=== PATIENT | female | born 1960 | race Caucasian/White ===

== ENCOUNTER → 2021-03-14 02:43 | Outpatient (CLI) | payer BC, SELFPAY ==
[2021-03-14 18:16] LABS: SARS-CoV-2 RNA PCR Negative
== END ==
PROVIDERS: PCP Family Medicine; Visit Provider Internal Medicine Gastroenterology
DX: Z01.812 Encounter for preprocedural laboratory examination (principal); Z20.822 Contact with and (suspected) exposure to COVID-19
CPT/HCPCS: C9803; U0003; U0005

== ENCOUNTER 2021-03-17 00:53 | Day surgery (SDC) | payer BC, SELFPAY ==
[2021-03-04 15:03] VITALS: BMI 40.3
[2021-03-17 08:10] VITALS: BP 151/103; PULSE 87; RESP 24; TEMP 36.6; O2SAT 96; BMI 40.5
[2021-03-17] MEDS: LACTATED RINGERS 1,000 ML 150 ML IV CONT (08:26)
--- NOTE | 2021-03-17 08:26 | PM.HPGS ---
History of Present Illness History of Present Illness Consent: Risks, benefits, and alternatives have been discussed and questions answered. Patient agrees to proceed with procedure. Chief complaint: hx of colon polyps Narrative: Arleth Nj is a 61 year old female here for colon cancer screening. She had a polyp removed several years ago Review of Systems Review of Systems: All systems reviewed & are unremarkable except as noted in HPI and below PMFSH Past Medical History Medical History BMI 31.0-31.9,adult Family History Family History Father Heart disease Hypertension Kidney disease Mother Multiple myeloma Sibling Heart disease Other Family history of cardiovascular disease Family history of kidney disease Family history of malignant neoplasm Social History Social History Smoking status: Never smoker Second hand tobacco smoke exposure: No Alcohol intake: current Alcohol use details: rarely Substance use: never Substance use type: does not use Living arrangements: with family Sexual Orientation (if Verbalized by the Patient): Lesbian, Smith, or Homosexual Spiritual care concerns: No Meds Home Medications and Allergies Home Medications Medication Instructions Recorded Confirmed Type hydroxychloroquine 200 mg tablet 200 mg PO BID 03/22/20 03/17/21 History meloxicam submicronized 10 mg 10 mg PO DAILY 03/22/20 03/17/21 History capsule adalimumab 40 mg/0.8 mL 40 mg SUBCUT ONCE 09/27/20 03/17/21 History subcutaneous pen kit triamcinolone acetonide 0.5 % 1 applic TOPICAL BID #30 g 09/27/20 03/17/21 Rx topical cream Allergies Allergy/AdvReac Type Severity Reaction Status Date / Time No Known Allergies Allergy Verified 03/17/21 08:01 Vital Signs Vital Signs - 24 hr 03/17/21 08:10 Temperature 36.6 C Pulse Rate 87 Respiratory Rate 24 H Blood Pressure 151/103 H Pulse Oximetry 96 Exam Const: General: alert Orientation/consciousness: patient oriented x3 Resp: Auscultation: clear to auscultation bilaterally Cardio: Rhythm: regular rhythm GI: GI Palp: Yes Soft to palpation and No Tenderness to palpation present (GI) Neuro: General: patient oriented x3 Assessment and Plan Assessment and plan (1) Colon cancer screening: Code(s): Z12.11 - Encounter for screening for malignant neoplasm of colon Status: Acute Assessment and Plan: Colonoscopy with possible biopsy or polypectomy or cautery or injection of substances.
--- NOTE | 2021-03-17 08:50 | WPDANESEPPF ---
Anes - Initial Pre Proc Eval Procedure: Operation Date: 03/17/21 09:00 Proposed Procedures p Screening Colonoscopy - Lauro Alcazar MD Date/Time: 03/17/21 08:50 Surgeon: Lauro Alcazar MD Pre Op Diagnosis: hx of colon polyps Patient Data Age: 61 Gender: F Height: 1.57 m Weight: 100.5 kg Last Vital Signs Temp 36.6 C 03/17/21 08:10 Pulse 87 03/17/21 08:10 Resp 24 H 03/17/21 08:10 BP 151/103 H 03/17/21 08:10 Pulse Ox 96 03/17/21 08:10 Allergies Allergy/AdvReac Type Severity Reaction Status Date / Time No Known Allergies Allergy Verified 03/17/21 08:01 Home Medications Medication Instructions Recorded Confirmed Type hydroxychloroquine 200 mg tablet 200 mg PO BID 03/22/20 03/17/21 History meloxicam submicronized 10 mg 10 mg PO DAILY 03/22/20 03/17/21 History capsule adalimumab 40 mg/0.8 mL 40 mg SUBCUT ONCE 09/27/20 03/17/21 History subcutaneous pen kit triamcinolone acetonide 0.5 % 1 applic TOPICAL BID #30 g 09/27/20 03/17/21 Rx topical cream Patient hx anesthesia problems: none Family hx anesthesia problems: none PMFSH Past Medical History Medical History BMI 31.0-31.9,adult Family History Family History Father Heart disease Hypertension Kidney disease Mother Multiple myeloma Sibling Heart disease Other Family history of cardiovascular disease Family history of kidney disease Family history of malignant neoplasm Social History Social History Smoking status: Never smoker Second hand tobacco smoke exposure: No Alcohol intake: current Alcohol use details: rarely Substance use: never Substance use type: does not use Living arrangements: with family Sexual Orientation (if Verbalized by the Patient): Lesbian, Smith, or Homosexual Spiritual care concerns: No Anes - Eval Final PreProcedure Day of Procedure 03/17/21 08:50 Patient weight: obese Heart: regular rate and rhythm Lungs: clear to auscultation and normal air movement Airway: Mallampati scale class II Neurological: alert and oriented Last oral intake: >/= 8 hours ASA classification: III Emergent: no Anesthetic plan: proceed Anesthesia type and monitoring: general GIVS Informed Consent: The patient's anesthetic plan and its attendant risks and benefits were discussed with the patient/family/POA. Questions were solicited and answers provided to the satisfaction of the patient/family/POA.
--- NOTE | 2021-03-17 08:52 | WPDANESEPPF ---
Anes - Initial Pre Proc Eval Procedure: Operation Date: 03/17/21 09:00 Proposed Procedures p Screening Colonoscopy - Lauro Alcazar MD Date/Time: 03/17/21 08:52 Surgeon: Lauro Alcazar MD Pre Op Diagnosis: hx of colon polyps Patient Data Age: 61 Gender: F Height: 1.57 m Weight: 100.5 kg Last Vital Signs Temp 36.6 C 03/17/21 08:10 Pulse 87 03/17/21 08:10 Resp 24 H 03/17/21 08:10 BP 151/103 H 03/17/21 08:10 Pulse Ox 96 03/17/21 08:10 Allergies Allergy/AdvReac Type Severity Reaction Status Date / Time No Known Allergies Allergy Verified 03/17/21 08:01 Home Medications Medication Instructions Recorded Confirmed Type hydroxychloroquine 200 mg tablet 200 mg PO BID 03/22/20 03/17/21 History meloxicam submicronized 10 mg 10 mg PO DAILY 03/22/20 03/17/21 History capsule adalimumab 40 mg/0.8 mL 40 mg SUBCUT ONCE 09/27/20 03/17/21 History subcutaneous pen kit triamcinolone acetonide 0.5 % 1 applic TOPICAL BID #30 g 09/27/20 03/17/21 Rx topical cream Patient hx anesthesia problems: none Family hx anesthesia problems: none PMFSH Past Medical History Medical History (Updated 03/17/21 @ 08:53 by Juan Francisco Joe MD) BMI 31.0-31.9,adult Hypothyroidism (acquired) Mixed hyperlipidemia Morbid obesity with BMI of 40.0-44.9, adult Psoriasis Family History Family History Father Heart disease Hypertension Kidney disease Mother Multiple myeloma Sibling Heart disease Other Family history of cardiovascular disease Family history of kidney disease Family history of malignant neoplasm Social History Social History Smoking status: Never smoker Second hand tobacco smoke exposure: No Alcohol intake: current Alcohol use details: rarely Substance use: never Substance use type: does not use Living arrangements: with family Sexual Orientation (if Verbalized by the Patient): Lesbian, Smith, or Homosexual Spiritual care concerns: No Anes - Eval Final PreProcedure Day of Procedure 03/17/21 08:52 Patient weight: obese Heart: regular rate and rhythm Lungs: clear to auscultation and normal air movement Airway: Mallampati scale class II Neurological: alert and oriented Last oral intake: >/= 8 hours ASA classification: III Emergent: no Anesthetic plan: proceed Anesthesia type and monitoring: general GIVS Informed Consent: The patient's anesthetic plan and its attendant risks and benefits were discussed with the patient/family/POA. Questions were solicited and answers provided to the satisfaction of the patient/family/POA.
[2021-03-17 09:17] VITALS: BP 99/64; PULSE 77; RESP 29; O2SAT 96
[2021-03-17 09:27] VITALS: BP 113/70; PULSE 68; RESP 19; O2SAT 95
[2021-03-17 09:37] VITALS: BP 138/85; PULSE 69; RESP 22; O2SAT 97
== END 2021-03-17 09:45 | disposition home or self-care (01) ==
PROVIDERS: PCP Family Medicine; Visit Provider Internal Medicine Gastroenterology
PROC: 0DJD8ZZ Inspection of Lower Intestinal Tract, Via Natural or Artificial Opening Endoscopic (ICD-10-PCS; CPT 45378; principal; 2021-03-17 09:00)
DX: Z12.11 Encounter for screening for malignant neoplasm of colon (principal); Z86.010 Personal history of colon polyps; E66.9 Obesity, unspecified; Z68.41 Body mass index [BMI] 40.0-44.9, adult
CPT/HCPCS: 45378; J2704; J7120

== ENCOUNTER → 2022-01-07 09:20 | Outpatient (CLI) | payer BC, SELFPAY ==
--- NOTE | ~2022-01-07 | XR_ITS ---
XR hip RT 2V w AP pelvis DATE: 01/07/2022 09:45 INDICATION: Right hip pain TECHNIQUE: AP pelvis. AP and lateral views of right hip. COMPARISON: None FINDINGS: No pelvic fracture or bone destruction. The pubic symphysis and sacroiliac joints are intac t. Hip joint spaces are symmetric and relatively well preserved. No fracture, dislocation, avascular necrosis or bone destruction of the right hip. Moderate degenerative disc disease at L3-4. IMPRESSION: No significant abnormality of the right hip Reviewed, dictated and finalized at location A.
== END ==
PROVIDERS: PCP Family Medicine; Visit Provider Physician Assistant Medical
DX: M25.551 Pain in right hip (principal); M47.816 Spondylosis without myelopathy or radiculopathy, lumbar region
CPT/HCPCS: 73502

== ENCOUNTER 2023-07-10 07:31 | Outpatient (CLI) | payer BC, SELFPAY ==
--- NOTE | ~2023-07-10 | MR_ITS ---
EXAMINATION: MR lumbar spine wo con DATE: 07/10/2023 08:07 INDICATION: Low back pain, unspecified. TECHNIQUE: Magnetic resonance imaging (MRI) of the lumbar spine was performed without intravenous con trast. Sequences included sagittal T2-weighted FSE, sagittal T2-weighted FS FSE, sagittal T1-weighted FSE, and axial T2-weighted FSE. COMPARISON: CT abdomen and pelvis 04/23/2016 FINDINGS: There is 8 degrees levocurvature of lumbar spine. There is mild chronic anterior wedging of T11 vertebral body. There is mildly decreased disc height at L3-L4. The distal spinal cord signal in tensity is normal. The conus medullaris is at L2. The following disc levels are specifically discusse d: L1-L2: The disc is bulging. There is mild right and moderate left facet joint osteoarthritis. There i s mild bilateral neural foraminal stenosis. There is mild central canal stenosis. L2-L3: The disc is mildly bulging. There is mild bilateral facet joint osteoarthritis. There is mild bilateral neural foraminal stenosis. There is no central canal stenosis. L3-L4: The disc is bulging and has an annular fissure. There is moderate right and mild left facet chata int osteoarthritis. There is mild bilateral neural foraminal stenosis. There is mild central canal st enosis. L4-L5: The disc is bulging and has an annular fissure. There is mild right and moderate left facet chata int osteoarthritis. There is mild bilateral neural foraminal stenosis. There is mild central canal st enosis. L5-S1: This is bulging and has an annular fissure. There is mild right and moderate left facet joint osteoarthritis. There is no neural foraminal stenosis. There is mild central canal stenosis. IMPRESSION: 1. Mild lumbar spondylosis. Reviewed, dictated and finalized at location E. IMPRESSION: 1. Mild lumbar spondylosis.
== END 2023-07-10 07:32 | disposition home or self-care (01) ==
PROVIDERS: PCP Family Medicine; Visit Provider Physician Assistant Medical
DX: M43.06 Spondylolysis, lumbar region (principal); M54.50 Low back pain, unspecified; M79.604 Pain in right leg
CPT/HCPCS: 72148

== ENCOUNTER → 2023-09-03 08:16 | Outpatient (CLI) | payer BC, SELFPAY ==
--- NOTE | ~2023-09-03 | XR_ITS ---
EXAMINATION: XR hip BI 2V w AP pelvis DATE: 09/03/2023 08:37 INDICATION: Hip pain TECHNIQUE: AP view the pelvis and two views of each hip were obtained. COMPARISON: 01/07/2022 FINDINGS: Bone alignment is normal. There is no fracture. There are phleboliths of the pelvis. IMPRESSION: 1. No acute osseous abnormality. Reviewed, dictated and finalized at location F. INSTALLATION SUPERVISOR
--- NOTE | ~2023-09-03 | XR_ITS ---
EXAMINATION: XR knee RT 3V DATE: 09/03/2023 08:37 INDICATION: Right knee pain TECHNIQUE: Three views of the right knee were obtained. COMPARISON: None. FINDINGS: Alignment is normal. No fracture or osteochondral lesion. There is mild tricompartmental os teoarthritis characterized by tiny marginal osteophytes. No joint effusion/synovitis. Soft tissues a re unremarkable. IMPRESSION: 1. Mild osteoarthritis without acute osseous abnormality. Reviewed, dictated and finalized at location F. NE CONTENT EDITOR
== END ==
PROVIDERS: PCP Family Medicine; Visit Provider Anesthesiology Pain Medicine
DX: M17.11 Unilateral primary osteoarthritis, right knee (principal); M25.551 Pain in right hip; M25.552 Pain in left hip
CPT/HCPCS: 73521; 73562